=== PATIENT | male | born 1960 | race Caucasian/White ===

== ENCOUNTER 2019-07-23 05:57 | Emergency (ER) | payer SELFPAY ==
[2019-07-23] MEDS ORDERED: LIDOCAINE 2% MPF 5 ML VIAL ONE (06:43)
--- NOTE | 2019-07-23 07:02 | ER ---
Nurse's Notes [facility] Name: Dallin Lewis Age: 58 yrs Sex: Male : 1960 Arrival Date: 07/23/2019 Time: 06:00 Bed 13 Private MD: Diagnosis: Puncture wound with foreign body of left forearm Presentation: 07/22 06:15 Chief complaint: Patient states: he has a piece of a fish hook stuck in his L forearm aa1 that has been there since approx midnight. Coronavirus screen: The patient has NOT traveled to a country currently being monitored by the [facility] within the last 14 days. Proceed with normal triage procedures. Ebola Screen: No symptoms or risks identified at this time. Initial Sepsis Screen: Does the patient meet any 2 criteria? No. Patient's initial sepsis screen is negative. Does the patient have a suspected source of infection? Yes: Skin breakdown/wound. Risk Assessment: Do you want to hurt yourself or someone else? Patient reports no desire to harm self or others. Onset of symptoms. Care prior to arrival: None. Transition of care: patient was not received from another setting of care. 06:15 Method Of Arrival: Ambulatory aa1 06:15 Acuity: INDIRA 4 aa1 Historical: - Allergies: 06:18 No Known Allergies; aa1 - Home Meds: 06:18 None [Active]; aa1 - PMHx: 06:18 None; aa1 - PSHx: 06:18 None; aa1 - Immunization history:: Last tetanus immunization: up to date. - Social history:: Smoking status: Patient reports the use of cigarette tobacco products. Screenin:18 Abuse screen: Denies threats or abuse. Denies injuries from another. Nutritional aa1 screening: No deficits noted. Tuberculosis screening: No symptoms or risk factors identified. Fall Risk None identified. Assessment: 06:18 General: Appears in no apparent distress. comfortable, Behavior is calm, cooperative, aa1 appropriate for age. Pain: Denies pain. Neuro: Level of Consciousness is awake, alert, obeys commands, Oriented to person, place, time, situation, Moves all extremities. Full function Gait is steady. Respiratory: Airway is patent Respiratory effort is even, unlabored, Respiratory pattern is regular, symmetrical. GI: No signs and/or symptoms were reported involving the gastrointestinal system. : No signs and/or symptoms were reported regarding the genitourinary system. :. EENT: No signs and/or symptoms were reported regarding the EENT system. Derm: Skin is intact, is healthy with good turgor, Skin is pink, warm \T\ dry. small puncture abdiaziz noted to L forearm with redness to surrounding tissue. Musculoskeletal: Circulation, motion, and sensation intact. Capillary refill < 3 seconds. 07:10 Reassessment: Patient appears in no apparent distress at this time. Patient is alert, rr5 oriented x 3, equal unlabored respirations, skin warm/dry/pink. discharge instruction given and explained without complaints made. 07:10 Cardiovascular: Capillary refill < 3 seconds Patient's skin is warm and dry. rr5 Vital Signs: 06:15 BP 140 / 98; Pulse 86; Resp 18; Temp 98.1; Pulse Ox 100% on R/A; Weight 72.57 kg; aa1 Height 5 ft. 10 in. (177.80 cm); Pain 0/10; 07:10 BP 135 / 95; Pulse 80; Resp 17; Pulse Ox 99% on R/A; rr5 06:15 Body Mass Index 22.96 (72.57 kg, 177.80 cm) aa1 ED Course: 06:00 Patient arrived in ED. es 06:15 Jesus Alberto Gibbs PA is PHCP. jr8 06:15 Jovon Palacios MD is Attending Physician. jr8 06:17 Triage completed. aa1 06:18 Patient placed in an exam room, on a stretcher. aa1 06:18 Patient has correct armband on for positive identification. Bed in low position. Call aa1 light in reach. Pulse ox on. NIBP on. 06:45 Assist provider with foreign body removal of a fish hook from left forearm using aa1 hemostats, Set up for procedure. Performed by Jesus Alberto MCCALL Patient tolerated well. Patient did not have IV access during this emergency room visit. 07:03 Taniya Lopez, NIKA is Primary Nurse. aa1 Administered Medications: 06:45 Drug: Lidocaine (2 %) Syringe 100 mg Volume: 5 ml; Route: Infiltration; aa1 07:10 Follow up: Response: No adverse reaction rr5 Outcome: 07:02 Discharge ordered by . jr8 07:15 Discharged to home ambulatory. rr5 07:15 Condition: stable 07:15 Discharge instructions given to patient, Instructed on discharge instructions, follow up and referral plans. medication usage, Demonstrated understanding of instructions, follow-up care, medications, Prescriptions given X 1. 07:17 Patient left the ED. rr5 Signatures: Taniya Lopez, RN RN aa1 Shefali Dowling Josh, PA PA jr8 Luis Carlos Lopez, RN RN rr5
--- NOTE | 2019-07-23 07:02 | EDPHYS ---
Physician Documentation [facility] Name: Dallin Lewis Age: 58 yrs Sex: Male : 1960 Arrival Date: 07/23/2019 Time: 06:00 Bed 13 Private MD: ED Physician Jovon Palacios HPI: 07/22 06:46 This 58 yrs old Male presents to ER via Ambulatory with complaints of Fish jr8 hook in arm. 06:46 The patient or guardian complains of a puncture wound, fish hook. The complaints affect jr8 the dorsal aspect of left forearm. Onset: The symptoms/episode began/occurred acutely, today. Modifying factors: The symptoms are alleviated by nothing. the symptoms are aggravated by movement. Associated signs and symptoms: Pertinent positives:. Severity of symptoms: At their worst the symptoms were mild, in the emergency department the symptoms are unchanged. The patient has not experienced similar symptoms in the past. The patient has not recently seen a physician. Stated that he accidently got a aminah of a treble hook stuck in left forearm. Cut the hook too far down and now cannot get it out . Historical: - Allergies: 06:18 No Known Allergies; aa1 - Home Meds: 06:18 None [Active]; aa1 - PMHx: 06:18 None; aa1 - PSHx: 06:18 None; aa1 - Immunization history:: Last tetanus immunization: up to date. - Social history:: Smoking status: Patient reports the use of cigarette tobacco products. ROS: 06:46 Eyes: Negative for injury, pain, redness, and discharge, ENT: Negative for injury, jr8 pain, and discharge, Neck: Negative for injury, pain, and swelling, Cardiovascular: Negative for chest pain, palpitations, and edema, Respiratory: Negative for shortness of breath, cough, wheezing, and pleuritic chest pain, Abdomen/GI: Negative for abdominal pain, nausea, vomiting, diarrhea, and constipation, Back: Negative for injury and pain, MS/Extremity: Negative for injury and deformity, Neuro: Negative for headache, weakness, numbness, tingling, and seizure. 06:46 Skin: Positive for puncture, of the left arm. Exam: 06:46 Eyes: Pupils equal round and reactive to light, extra-ocular motions intact. Lids and jr8 lashes normal. Conjunctiva and sclera are non-icteric and not injected. Cornea within normal limits. Periorbital areas with no swelling, redness, or edema. ENT: Nares patent. No nasal discharge, no septal abnormalities noted. Tympanic membranes are normal and external auditory canals are clear. Oropharynx with no redness, swelling, or masses, exudates, or evidence of obstruction, uvula midline. Mucous membranes moist. Neck: Trachea midline, no thyromegaly or masses palpated, and no cervical lymphadenopathy. Supple, full range of motion without nuchal rigidity, or vertebral point tenderness. No Meningismus. Cardiovascular: Regular rate and rhythm with a normal S1 and S2. No gallops, murmurs, or rubs. Normal PMI, no JVD. No pulse deficits. Respiratory: Lungs have equal breath sounds bilaterally, clear to auscultation and percussion. No rales, rhonchi or wheezes noted. No increased work of breathing, no retractions or nasal flaring. Abdomen/GI: Soft, non-tender, with normal bowel sounds. No distension or tympany. No guarding or rebound. No evidence of tenderness throughout. Back: No spinal tenderness. No costovertebral tenderness. Full range of motion. MS/ Extremity: Pulses equal, no cyanosis. Neurovascular intact. Full, normal range of motion. Neuro: Awake and alert, GCS 15, oriented to person, place, time, and situation. Cranial nerves II-XII grossly intact. Motor strength 5/5 in all extremities. Sensory grossly intact. Cerebellar exam normal. Normal gait. 06:46 Skin: Patient has small approximately 2 mm puncture wound with small amount of hook showing to left dorsal forearm. No other trauma noted . Vital Signs: 06:15 BP 140 / 98; Pulse 86; Resp 18; Temp 98.1; Pulse Ox 100% on R/A; Weight 72.57 kg; aa1 Height 5 ft. 10 in. (177.80 cm); Pain 0/10; 07:10 BP 135 / 95; Pulse 80; Resp 17; Pulse Ox 99% on R/A; rr5 06:15 Body Mass Index 22.96 (72.57 kg, 177.80 cm) aa1 Procedures: 07:00 Foreign Body Removal: a fishhook, from the left dorsal aspect of left forearm, by using jr8 a hemostat, lidocaine lavage, Dressinx4s were used to dress the wound, The patient tolerated the removal well. MDM: 06:15 Patient medically screened. jr8 07:00 Data reviewed: vital signs, nurses notes, and as a result, I will discharge patient. jr8 Data interpreted: Pulse oximetry: on room air is 100 %. Interpretation: normal. Counseling: I had a detailed discussion with the patient and/or guardian regarding: the historical points, exam findings, and any diagnostic results supporting the discharge/admit diagnosis, the need for outpatient follow up, a family practitioner, to return to the emergency department if symptoms worsen or persist or if there are any questions or concerns that arise at home. 07/22 06:33 Order name: Dressing - Wound; Complete Time: 07:03 8 07/22 06:33 Order name: Gloves, Sterile; Complete Time: 07:00 jr8 07/22 06:33 Order name: Setup Suture Tray; Complete Time: 07:00 jr8 Administered Medications: 06:45 Drug: Lidocaine (2 %) Syringe 100 mg Volume: 5 ml; Route: Infiltration; aa1 07:10 Follow up: Response: No adverse reaction rr5 Disposition: 07/23 04:29 Co-signature as Attending Physician, Jovon Palacios MD I agree with the assessment and tw4 plan of care. Disposition: 07/23/19 07:02 Discharged to Home. Impression: Puncture wound with foreign body of left forearm. - Condition is Stable. - Discharge Instructions: Foreign Body. - Prescriptions for Cipro 500 mg Oral Tablet - take 1 tablet by ORAL route every 12 hours for 7 days; 14 tablet. - Medication Reconciliation Form, Thank You Letter, Antibiotic Education, Prescription Opioid Use form. - Follow up: Private Physician; When: 5 - 6 days; Reason: Wound Recheck, Recheck today's complaints, Continuance of care, Re-evaluation by your physician. - Problem is new. - Symptoms have improved. Signatures: Taniya Lopez RN RN aa1 Jesus Alberto Gibbs PA PA jr8 Jovon Palacios MD MD tw4 Luis Carlos Lopez RN RN rr5 Corrections: (The following items were deleted from the chart) 07/22 07:17 07:02 07/23/2019 07:02 Discharged to Home. Impression: Puncture wound with foreign body rr5 of left forearm. Condition is Stable. Forms are Medication Reconciliation Form, Thank You Letter, Antibiotic Education, Prescription Opioid Use. Follow up: Private Physician; When: 5 - 6 days; Reason: Wound Recheck, Recheck today's complaints, Continuance of care, Re-evaluation by your physician. Problem is new. Symptoms have improved. jr8
[2019-07-23 07:24] VITALS: TEMP 98.1
[2019-07-23 07:26] VITALS: BP 135/95; O2SAT 99
== END 2019-07-23 07:17 | disposition home or self-care (01) ==
LOC: ER 05:57
DX: S51.842A Puncture wound with foreign body of left forearm, initial encounter (principal)
CPT/HCPCS: 99284

== ENCOUNTER 2020-06-03 06:13 | Emergency (ER) | payer SELFPAY ==
[2020-06-03] MEDS ORDERED: LIDOCAINE 1% MPF 5 ML VIAL ONE (07:27)
--- NOTE | 2020-06-03 07:41 | ER ---
Nurse's Notes [facility] Name: Dallin Lewis Age: 59 yrs Sex: Male : 1960 Arrival Date: 06/03/2020 Time: 06:13 Bed 18 Private MD: Diagnosis: Superficial foreign body of left middle finger-[place] Presentation: 06/03 06:25 Chief complaint: Patient states: Fish hook in place to left middle finger; occurred at lp1 1999 last night, unable to remove. Coronavirus screen: Client denies travel out of the [place] in the last 14 days. At this time, the client does not indicate any symptoms associated with coronavirus-19. Ebola Screen: No symptoms or risks identified at this time. Risk Assessment: Do you want to hurt yourself or someone else? Patient reports no desire to harm self or others. Onset of symptoms was June 02, 2020. 06:25 Method Of Arrival: Ambulatory lp1 06:25 Acuity: INDIRA 4 lp1 06:28 Initial Sepsis Screen: Does the patient meet any 2 criteria? No. Patient's initial lp1 sepsis screen is negative. Does the patient have a suspected source of infection? No. Patient's initial sepsis screen is negative. Triage Assessment: 07:20 Injury Description: Foreign body is located palmar aspect of distal phalanx of left tw2 middle finger. Historical: - Allergies: 07:20 No Known Allergies; tw2 - PSHx: 06:23 None; ea - Immunization history:: Adult Immunizations up to date. - Social history:: Smoking status: Patient denies any tobacco usage or history of. - Family history:: not pertinent. - Hospitalizations: : No recent hospitalization is reported. Screenin:22 Abuse screen: Denies threats or abuse. Nutritional screening: No deficits noted. ea Tuberculosis screening: No symptoms or risk factors identified. Fall Risk None identified. Assessment: 06:23 General: Appears in no apparent distress. Behavior is appropriate for age. Pain: ea Complains of pain in palmar aspect of distal phalanx of left middle finger. Neuro: Level of Consciousness is awake, alert, obeys commands, Oriented to person, place, time. Respiratory: Airway is patent Respiratory effort is even, unlabored, Respiratory pattern is regular, symmetrical. Derm: Skin is pink, warm \T\ dry. Musculoskeletal: Circulation, motion, and sensation intact. 07:15 Reassessment: xray at bedside at this time. tw2 07:44 Reassessment: Patient appears in no apparent distress at this time. Patient and/or tw2 family updated on plan of care and expected duration. Pain level reassessed. Patient is alert, oriented x 3, equal unlabored respirations, skin warm/dry/pink. Patient states feeling better. Vital Signs: 06:28 BP 122 / 108; Pulse 89; Resp 18; Pulse Ox 97% on R/A; Weight 72.57 kg (R); Height 5 ft. lp1 10 in. (177.80 cm); Pain 0/10; 07:19 BP 125 / 92; Pulse 72; Resp 17; Temp 97.9(TE); Pulse Ox 99% on R/A; tw2 06:28 Body Mass Index 22.96 (72.57 kg, 177.80 cm) lp1 ED Course: 06:13 Patient arrived in ED. am2 06:22 Arm band placed on right wrist. Patient placed in an exam room, on a stretcher, on ea pulse oximetry. 06:22 Patient has correct armband on for positive identification. Bed in low position. Call ea light in reach. Side rails up X2. Pulse ox on. NIBP on. 06:28 Triage completed. lp1 06:31 Edy Johnson MD is Attending Physician. 7 07:08 Attending Physician role handed off by Edy Johnson MD rn 07:08 Jovanny Hernandez MD is Attending Physician. rn 07:14 Sadia Ayala RN is Primary Nurse. tw2 07:45 No provider procedures requiring assistance completed. Patient did not have IV access tw2 during this emergency room visit. Wound care: located on left hand and palmar aspect of distal phalanx of left middle finger was cleaned with soap and water, dressed with Neosporin, 4X4s, non adherent and secured with coban.. Administered Medications: 07:19 CANCELLED (Duplicate Order): Lidocaine (1 %) 10 ml 5 ml Infiltration once; to bedside tw2 07:30 Drug: Lidocaine (1 %) 1 vials {Note: by Dr. Hernandez.} Volume: 5 ml; Route: Infiltration; tw2 Outcome: 07:39 Discharge ordered by . rn 07:47 Discharged to home ambulatory. tw2 07:47 Condition: stable 07:47 Discharge instructions given to patient, Instructed on discharge instructions, follow up and referral plans. medication usage, wound care, Demonstrated understanding of instructions, follow-up care, medications, wound care, Prescriptions given X 1. 07:47 Patient left the ED. tw2 Signatures: Jovanny Hernandez MD MD rn Pena, Laura, RN RN lp1 Sadia Ayala RN RN tw2 Carole Ballesteros Elena, RN RN ea Holmes, Maurice, MD MD [id number] Corrections: (The following items were deleted from the chart) 06:25 06:23 Onset of symptoms anna castillo 06:25 06:24 Initial Sepsis Screen: Does the patient have a suspected source of infection? anna castillo
--- NOTE | 2020-06-03 07:41 | EDPHYS ---
Physician Documentation [facility] Name: Dallin Lewis Age: 59 yrs Sex: Male : 1960 Arrival Date: 06/03/2020 Time: 06:13 Bed 18 Private MD: ED Physician Jovanny Hernandez HPI: 06/03 07:36 This 59 yrs old Male presents to ER via Ambulatory with complaints of Finger rn Injury - fish hook. 07:36 Trauma demographics: Location of Injury: The injury occurred outdoors. rn 07:36 The patient or guardian reports foreign body. The complaints affect the palmar aspect rn of distal phalanx of left middle finger. Onset: The symptoms/episode began/occurred last night. Modifying factors: The symptoms are alleviated by nothing, the symptoms are aggravated by nothing. Severity of symptoms: At their worst the symptoms were mild, in the emergency department the symptoms are unchanged. The patient has experienced similar episodes in the past. Reports accidental fishhook in left middle finger, cut half of shaft, tetanus UTD.. Historical: - Allergies: 07:20 No Known Allergies; tw2 - PSHx: 06:23 None; ea - Immunization history:: Adult Immunizations up to date. - Social history:: Smoking status: Patient denies any tobacco usage or history of. - Family history:: not pertinent. - Hospitalizations: : No recent hospitalization is reported. ROS: 07:36 Constitutional: Negative for fever, chills, and weight loss, MS/Extremity: + fishhook rn in left middle finger Exam: 07:36 Constitutional: This is a well developed, well nourished patient who is awake, alert, rn and in no acute distress. MS/ Extremity: Pulses equal, no cyanosis. Neurovascular intact. Full, normal range of motion. Small fishhook pad of finger, left 3rd digit, partially exposed. No erythema or swelling noted. Vital Signs: 06:28 BP 122 / 108; Pulse 89; Resp 18; Pulse Ox 97% on R/A; Weight 72.57 kg (R); Height 5 ft. lp1 10 in. (177.80 cm); Pain 0/10; 07:19 BP 125 / 92; Pulse 72; Resp 17; Temp 97.9(TE); Pulse Ox 99% on R/A; tw2 06:28 Body Mass Index 22.96 (72.57 kg, 177.80 cm) lp1 Procedures: 07:36 Foreign Body Removal: a fishhook, from the left palmar aspect of distal phalanx of left rn middle finger, by using a hemostat, needle, Dressinx4s were used to dress the wound, The patient tolerated the removal well. MDM: 07:08 Patient medically screened. rn 07:36 Differential diagnosis: foreign body. Data reviewed: vital signs, nurses notes, rn radiologic studies, plain films, and as a result, I will discharge patient. Test interpretation: by ED physician or midlevel provider: plain radiologic studies, Xray left hand neg for bony injury, fishhook in finger pad. Counseling: I had a detailed discussion with the patient and/or guardian regarding: the historical points, exam findings, and any diagnostic results supporting the discharge/admit diagnosis, radiology results, the need for outpatient follow up, to return to the emergency department if symptoms worsen or persist or if there are any questions or concerns that arise at home. Response to treatment: the patient's symptoms have markedly improved after treatment, and as a result, I will discharge patient. Special discussion: I discussed with the patient/guardian in detail that at this point there is no indication for admission to the hospital. It is understood, however, that if the symptoms persist or worsen the patient needs to return immediately for re-evaluation. 06/03 06:57 Order name: Hand Left 3 View XRAY [id number] 06/03 07:44 Order name: Wound dressing; Complete Time: 07:44 tw2 06/03 07:44 Order name: Wound Care; Complete Time: 07:44 tw2 Administered Medications: 07:19 CANCELLED (Duplicate Order): Lidocaine (1 %) 10 ml 5 ml Infiltration once; to bedside tw2 07:30 Drug: Lidocaine (1 %) 1 vials {Note: by Dr. Hernandez.} Volume: 5 ml; Route: Infiltration; tw2 Disposition: 06/03/20 07:39 Discharged to Home. Impression: Superficial foreign body of left middle finger - [place]. - Condition is Stable. - Prescriptions for Augmentin 875- 125 mg Oral Tablet - take 1 tablet by ORAL route every 12 hours for 10 days; 20 tablet. - Medication Reconciliation Form, Thank You Letter, Antibiotic Education, Prescription Opioid Use form. - Follow up: Private Physician; When: As needed; Reason: Recheck today's complaints, Re-evaluation by your physician. - Problem is new. - Symptoms have improved. Signatures: Dispatcher [employer] EDJovanny Alvarado MD MD rn Wise, Tara, RN RN tw2 Jyoti Coleman RN RN anna Corrections: (The following items were deleted from the chart) 07:19 07:19 Lidocaine (1 %) 10 ml 5 ml Infiltration once; to bedside ordered. tw2 tw2 07:40 07:39 06/03/2020 07:39 Discharged to Home. Impression: Superficial foreign body of left rn middle finger. Condition is Stable. Forms are Medication Reconciliation Form, Thank You Letter, Antibiotic Education, Prescription Opioid Use. Follow up: Private Physician; When: As needed; Reason: Recheck today's complaints, Re-evaluation by your physician. Problem is new. Symptoms have improved. rn 07:47 07:40 06/03/2020 07:39 Discharged to Home. Impression: Superficial foreign body of left tw2 middle finger - [place]. Condition is Stable. Forms are Medication Reconciliation Form, Thank You Letter, Antibiotic Education, Prescription Opioid Use. Follow up: Private Physician; When: As needed; Reason: Recheck today's complaints, Re-evaluation by your physician. Problem is new. Symptoms have improved. rn
[2020-06-03 07:53] VITALS: BP 125/92; TEMP 97.9; O2SAT 99
--- NOTE | 2020-06-03 09:01 | RAD REPORT ---
EXAM DESCRIPTION: RAD - Hand Left 3 View - 06/03/2020 7:20 am CLINICAL HISTORY: Foreign Body Pain and swelling COMPARISON: No comparisons FINDINGS: Small fishhook is seen in the palmar soft tissues of the distal third finger. Additional l inear foreign body seen in the distal palmar soft tissues of fourth finger. No fracture evident.
== END 2020-06-03 07:47 | disposition home or self-care (01) ==
LOC: ER 06:13
DX: S61.243A Puncture wound with foreign body of left middle finger without damage to nail, initial encounter (principal); W22.8XXA Striking against or struck by other objects, initial encounter
CPT/HCPCS: 99284

== ENCOUNTER 2023-09-20 16:35 | Emergency (ER) | payer SELFPAY ==
--- OUTSIDE RECORDS SUMMARY | 2023-09-20 16:38 | XMS REPORT | Continuity of Care Document ---
Author Name Unknown Address [address] [facility] [address] [place] [address] [facility] thconnect Address [address] [facility] [address] [place] [address] Care Team Providers Care Oncology Technician Name Role Phone NONE, NONE Primary Care Physician Unavailab DR WILBER Dixon Attending Clinician Rosalva Basim Harvey Attending Clinician DR WILBER Wills Admitting Clinician Rosalva Neil Gibbons Admitting Clinician Unavailabl e Payers Payer Name Policy Type Policy Number Effective Date Expirati on Date Source [id number] 2022 00:00:00 Allergies, Adverse Reactions, Alerts Allergy Name Allergy Type Status Severity Reaction(s) Onset Date Inactive Date Treating Clinician Comments Source No Known Allergie s DA Active U 08-20 00:00: 00 STLSJX No Known Allergie s DA Active [facility] Vital Signs Vital Name Observation Time Observation Value Comments S ource Height 2022-10-23 13:25:00 177.8 CM Weight 2022-10-23 13:25:00 65.9 KG WEIGHT 2021-08-20 12:26:00 72.4 kg HEIGHT 2021-08-20 12:26:00 182.88 cm Encounters Start Date/Time End Date/Time Encounter Type Admission Type Attending Clinicians Care Facility Care Department Encounter ID Source 2022-10-23 13:20:00 2022-10-23 18:04:00 Outpatient E WILBER DOSS [facility] [address] [id number] [facility] 2021-08-20 11:56:00 2021-08-21 16:07:00 Inpatient ER Basim Ramesh STLSJX [facility] [id number] STLSJX Results Test Description Test Time Test Comments Results Result Co mments Source TROPONIN I OW2022-10-23 14:39:00* Test Item Value Reference Range Interpretation Comme nts TROPONIN I (test code = GTPI) <0.05 ng/mL See_Comment [Automated messa ge] The system which generated this result transmitted reference range: <=0.05. The reference range was not used to interpret this result as normal/abnormal. [employer] 8 Panel *OW* [id number] 14:20:00* Test Item Value Reference Range Interpretation Comme nts GLUCOSE (test code = GGUL) 106 mg/dL 73-118 BUN (test code = GBUN) 12 mg/dL 7-22 CREATININE (test code = GCRE) 0.8 mg/dL 0.6-1.2 CK TOTAL (test code = GCK) 42 U/L 39-380 SODIUM (test code = GNA+) 137 mmol/L 128-145 POTASSIUM (test code = GK+) 4.5 mmol/L 3.6-5.1 CHLORIDE (test code = GCL-) 106 mmol/L 98-108 TCO2 (test code = GTC02) 26 mmol/L 18-33 CBC (INCLUDES AUTOMATED DIFFERENTIAL) *2022-10-23 14:09:00* Test Item Value Reference Range Interpretation Comme nts WBC (test code = WBC) 7.1 10\S\3/uL 4.5-11.0 RBC (test code = RBC) 4.87 10\S\6/uL 4.20-5.60 HGB (test code = HBG) 14.9 g/dL 14.0-18.0 HCT (test code = HCT) 48.6 % 35.0-46.0 H MCV (test code = MCV) 99.7 fL 80.0-94.0 H MCH (test code = MCH) 30.6 pg 27.0-31.0 MCHC (test code = MCHC) 30.7 g/dL 32.0-36.0 L RDW (test code = RDW) 12.8 % 11.5-14.5 PLT (test code = PLT) 293 10\S\3/uL 130-400 MPV (test code = OMPV) 6.8 fL 6.2-10.2 NEUTROP # (test code = NE#) 4.1 10\S\3/uL 2.0-8.0 LYMPH # (test code = LY#) 2.4 10\S\3/uL 1.2-4.0 MID # (test code = GMID#) 0.6 10\S\3/uL 0.0-1.1 GRAN % (test code = GRA%) 58.3 % 35.0-73.0 LYMPH % (test code = GLY%) 33.9 % 20.0-55.0 MID % (test code = GMID%) 7.8 % 0.0-10.0 XR CHEST 1 VIEW PORTABLE *OW*2022-10-23 13:51:24 [facility] 1960 Sex: MChest Radiog raphHistory: Chest painComparison: None at this timeLocation: H45A single frontal view of the chestis submitted. The heart is within normal limits in size. Pulmonary vasculature is unremarkable. Thevisualized lung guy appear to be free of disease.The bones appear unremarkable.IMPRESSION:There is no radiographic evidence of acute cardiopulmonary disease.Electronically signed by: Mike Schulz 10/23/2022 1:51 PM CDT Chest 1 View PortableName: ROSALINE JOSEPH : 1960 [facility] [address] [facility] Phys: [place] [address] : 1960 Age: 60 SEX:M Exam Date: 08/20/21 Status: REG ER Acct: [id number] Loc: [facility] Pt Unit #: [id number] Report #: [id number] CC: Yordan Lang MD IMAGING SERVICES REPORT Order # Category/Exam [id number] RAD/XR Chest 1 View Portable ([id number]): . Results Portable frontal chest radiograph: 08/20/2021 COMPARISON: None available HISTORY: Chest pain, confusion FINDINGS: No pneumothorax or pleural fluid. No lobar consolidation or alveolar edema. Small nodule in left base noted, likely nipple shadow. Subtle nodular density in left lung apex noted partially overlying first rib and clavicle, significance uncertain on portable imaging. This could be a pulmonary nodule or a confluence of shadows.. IMPRESSION:No radiographic evidence of acute cardiopulmonary disease. Nodular densities on the leftas detailed above. Recommend nonemergent follow-up imaging of the chest with PA and lateral views with nipple markers. Code LN Reported By: Tulio Martinez MD Electronically Signed Date/Time: 08/20/21 08 Technologist: RADHA Dictated Date/Time: 08/20/21 0803 Transcribed Date/Time: Notes Date/Time Note Provider Source 2021-08-21 19:39:00 [id number] 29-08-13T19:39:00[facility] Name: ROSALINE JOSEPH [address] [facility] : 1960, Age: 60, Sex: [place] [address] Unit #: [id number], Status: DIS IN Location: [facility] I02-I Report Dict DrVeronica: Basim Ramesh MD Admission Date: 08/20/21 Report #: [id number] Discharge Date: 08/21/21 CC: Discharge Summary Provider Encounter Date: 08/21/21 Date of Admission: 08/20/21 11:56 Date of Discharge: 08/21/21 Admitting Provider: Neil Campos MD Primary Care Physician: NO PCP PROVIDER Course Hospital Course: This a 60-year-old with a PMH that includes tobacco use, and recent marijuana and methamphetamine use who was admitted on 08/20/2021 with chest pain, dizziness, shortness of breath. His chest pain appeared most consistent with costochondritis but his shortness of breath and dyspnea on exertion are concerning. He has COPD that is likely playing a role, however, there is significant concern for CHF contributions. On the day of discharge, a TTE was pending and he was recommended to stay until the echo report was finalized, and I had a long discussion with the patient about this especially in the setting of methamphetamine use. Patient unfortunately left AGAINST MEDICAL ADVICE prior to the TTE report being finalized; the TTE showed an EF of 40-45% suggesting benefit to guideline directed medical therapy for HFrEF. Prior to him leaving [facility], I had a long and detailed discussion with him regarding his need for a PCP. Although he left prior to the TTE report being finalized and is being able to officially diagnose him with HFrEF, I clearly communicated to him that I was expecting the TTE to show heart failure and we even discussed the importance of methamphetamine abstinence and obtaining a PCP and greige goods examiner. If he does follow-up with the PCP or greige goods examiner, methamphetamine cessation is paramount (I discussed this with him and provided counseling) and he warrantsguideline directed medical therapy for HFrEF with subsequent TTE. Pertinent Studies: Troponin is negative x3 UDS - meth, benzos, amphetamines CXR 08/20no acute findings. Small nodule left base noted felt to be likely nipple shadow. Subtle nodular density in left lung apex partially overlying first rib and clavicle with uncertain significance. TTE was done but report has not been uploaded, reportedly with an EF of 44%. Resuscitation Status: 08/20/21 13:49 Resuscitation Status Routine Co-Sign Provider: Resuscitation Status: FULL: Full Resuscitation Lab Results: 08/21/21 03:39 08/21/21 03:39 Abnormal Lab Results - Last 48 hrs 08/20/21 08:20: Chloride 113 H, Carbon Dioxide 20 L, Alkaline Phosphatase 132 H 08/21/21 03:39: Chloride 108 H, Carbon Dioxide 21 L 08/21/21 04:00: Ur Amphetamines Screen Detected H, U Methamphetamines Scrn Detected H, U Benzodiazepines Scrn Detected H Vitals: Vital Signs (12 hours) Temp Pulse Resp BP Pulse Ox 08/21/21 15:48 97 08/21/21 12:00 97.8 F 63 22 H 96/61 97 08/21/21 08:00 97.6 F 69 22 H 114/83 99 Weight Weight 159 lb 9.835 oz Physical Exam: The patient was seen and examined on the day of discharge. He appeared well on room air on day of discharge. Cardiopulmonary exam is unremarkable. Plan Prescriptions: Aspirin Chewable [Aspirin Chewable Tablet] 81 mg PO DAILY #30 tab Atorvastatin Calcium [Lipitor] 40 mg PO HS #30 tab Metoprolol Tartrate [Lopressor] 12.5 mg PO BID #60 tab Nitroglycerin [Nitrostat] 0.4 mg SL Q5MIN PRN #21 tab PRN Reason: Chest Pain Home Medications: Medication Instructions Recorded Confirmed Type Aspirin Chewable [Aspirin Chewable 81 mg PO DAILY #30 tab 08/21/21 Rx Tablet] Atorvastatin Calcium [Lipitor] 40 mg PO HS #30 tab 08/21/21 Rx Metoprolol Tartrate [Lopressor] 12.5 mg PO BID #60 tab 08/21/21 Rx Nitroglycerin [Nitrostat] 0.4 mg SL Q5MIN PRN #21 tab 08/21/21 Rx Allergies: No Known Allergies Allergy (Unverified 08/20/21 11:54) Referrals: PROVIDER,NO PCP [Primary Care Provider] - Disposition: LEFT AGAINST MEDICAL ADVICE Quality CORE MEASURES:: N/A <Electronically signed by Basim Ramesh > 09/13/21 1734 CNConsultationAshia CoelhoPrfgivJarovNnfbhi0588-85-21E59:39:[id number] for patient Fabiano DixonMaotoaEYODDYZXLNJU9185-69-03U35:36:13 Basim Ramesh STLSJX 2021-08-21 09:26:00 [id number] NrcpeAjFXgnSNigCggh [id number] 29-08-13T09:26:00[facility] Name: ROSALINE JOSEPH [address] [facility] : 1960, Age: 60, [place]: [place] [address] Unit #: [id number], Status: DIS IN Location: [facility] I02-I Report Dict DrVeronica: Nina Beckham PA-C Admission Date: 08/20/21 Report #: [id number] Discharge Date: 08/21/21 CC: Consultation - Consultation Encounter Date: 08/21/21 Encounter Time: 09:26 Reason for Consultation: Chest pain HPI: This patient is a 60-year-old male with a past medical history of anxiety and remote drug use, current tobacco user who presented to ED with chief complaints of left-sided chest pain that radiates to his left scapula starting yesterday morning as he was getting ready for work. 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 He denies no known etiology and reports his chest pain lasted approximately 30 minutes, resolving once in the ED post administration of aspirin. He describes the pain as sharp and stabbing, worse with movement and breathing. He denies nausea, emesis, diaphoresis, BLE edema or palpitations. He did experiencesome dizziness and shortness of breath throughout his chest pain episode. He reports no prior similar episodes. He states he has not seen a PCP in approximately 20 years and takes no medications routinely. He denies recent falls/trauma. CXR in the ER showed a lung lesion of unclearsignificance. EKG was normal. He was admitted for evaluation. He is still complaining of discomfort in his left scapula that is reproducible with palpation. He is sore with moving around. He does admit to smoking a pack a day and uses meth on a regular basis. He last used this on Wednesday. He has no known cardiac history. Allergies/Adverse Reactions: Allergy/AdvReac Type Severity Reaction Status Date / Time No Known Allergies Allergy Unverified 08/20/21 11:54 Home Medications: Medication Instructions Recorded Confirmed Type No Known 08/20/21 08/20/21 History Past medical history: None Past surgical history: None Family history: Both parents , motheraneurysm, fatherMI age 47 Social history: Reports current use of tobacco, 1 PPD for> 30 years, reports social alcohol use, reports use of marijuana/methamphetamines with last use approximately 4 days ago. ROS Constitutional: denies: fever, chills, sweats, weakness, malaise Respiratory: reports: shortness of breath. denies: cough, dry, hemoptysis, SOB with excertion, pleuritic pain, sputum, wheezing Cardiovascular: reports: chest pain, light headedness. denies: palpitations, orthopnea, paroxysmal noc. dyspnea, edema, other Gastrointestinal: denies: nausea, vomiting, abdominal pain, diarrhea, constipation, melena, hematochezia Genitourinary: denies: dysuria, frequency, incontinence, hematuria, retention Musculoskeletal: denies: neck pain, shoulder pain, arm pain, back pain, hand pain, leg pain, foot pain Skin: denies: rash, lesions, cristiano, bruising Neurological: denies: weakness, numbness, incoordination, change in speech, confusion, seizures All other systems reviewed; all pertinent +/- noted in HPI/Subj Exam Vitals: BP 114/83 HR 69 General Appearance: NAD, awake alert Eye: PERRL, anicteric sclera ENT: normocephalic atraumatic, moist mucosa Neck: supple, symmetric, no JVD Heart: RRR, no murmur, normal peripheral pulses, chest tender on the left side Respiratory: no wheezes, no rales, no ronchi, no tachypnea Gastrointestinal: soft, non-tender, non-distended, no guarding Extremities: no cyanosis, no edema Skin: normal turgor Neurological: cranial nerve grossly intact, normal sensation to touch, no weakness Musculoskeletal: normal tone, no muscle wasting, left scapular area tender to touch Psychiatric: normal affect, normal behavior, A O x 3 08/20/21 08:20 Lab results: Laboratory Last Values WBC 6.7 10x3/uL (3.5-10.5) 08/20/21 08:20 RBC 4.98 10x6/uL (4.32-5.72) 08/20/21 08:20 Hgb 15.0 g/dL (13.5-17.5) 08/20/21 08:20 Hct 45.1 % (38.8-50.0) 08/20/21 08:20 MCV 90.6 fl (81.2-95.1) 08/20/21 08:20 MCH 30.1 pg (27.0-33.0) 08/20/21 08:20 MCHC 33.3 g/dL (32.0-36.0) 08/20/21 08:20 RDW 13.2 % (11.5-14.5) 08/20/21 08:20 Plt Count 292 10x3/uL (150-450) 08/20/21 08:20 MPV 8.6 fl (7.4-10.4) 08/20/21 08:20 Immature Gran % (Auto) 0.3 % (0-5) 08/20/21 08:20 Nucleat RBC Rel Count 0.0 /100 WBC (0.0-0.0) 08/20/21 08:20 Immature Gran # (Auto) 0.02 10x3/uL (0.00-0.50) 08/20/21 08:20 Neutrophils % 57.1 % (40.0-75.0) 08/20/21 08:20 Lymphocytes % 33.1 % (18.0-47.0) 08/20/21 08:20 Monocytes % 6.8 % (0.0-10.0) 08/20/21 08:20 Eosinophils % 1.8 % (0.0-6.0) 08/20/21 08:20 Basophils % 0.9 % (0.0-2.0) 08/20/21 08:20 Neutrophils # 3.9 10x3/uL (1.5-8.4) 08/20/21 08:20 Lymphocytes # 2.2 10x3/uL (0.7-4.9) 08/20/21 08:20 Monocytes # 0.5 10x3/uL (0.0-1.1) 08/20/21 08:20 Eosinophils # 0.1 10x3/uL (0.0-0.5) 08/20/21 08:20 Basophils # 0.1 10x3/uL (0.0-0.2) 08/20/21 08:20 Sodium 143 mmol/L (136-145) 08/20/21 08:20 Potassium 4.4 mmol/L (3.5-5.1) 08/20/21 08:20 Chloride 113 mmol/L (98-107) H 08/20/21 08:20 Carbon Dioxide 20 mmol/L (22-29) L 08/20/21 08:20 Anion Gap 14 mmol/L (10-20) 08/20/21 08:20 BUN 18 mg/dL (8.4-25.7) 08/20/21 08:20 Creatinine 0.84 mg/dL (0.7-1.3) 08/20/21 08:20 Estimated GFR (MDRD) Greater than 90 08/20/21 08:20 Glucose 90 mg/dL (70-105) 08/20/21 08:20 Calcium 9.5 mg/dL (7.8-10.44) 08/20/21 08:20 Total Bilirubin 0.3 mg/dL (0.2-1.2) 08/20/21 08:20 AST 17 U/L (5-34) 08/20/21 08:20 ALT 16 U/L (8-55) 08/20/21 08:20 Alkaline Phosphatase 132 U/L (40-110) H 08/20/21 08:20 Troponin I Less than 0.010 ng/mL (< 0.028) 08/20/21 11:17 Serum Total Protein 7.4 g/dL (6.0-8.3) 08/20/21 08:20 Albumin 4.2 g/dL (3.5-5.0) 08/20/21 08:20 Globulin 3.2 g/dL (2.4-3.5) 08/20/21 08:20 Albumin/Globulin Ratio 1.3 g/dL (1.2-2.2) 08/20/21 08:20 Lipase 26 U/L (8-78) 08/20/21 08:20 Assessment: Chest pain, atypical, normal EKG, normal cardiac enzymes, likely musculoskeletal Abnormal CXR Methamphetamine use Tobacco abuse Positive family history of CAD HTN, mild History of anxiety Recommendations: Will review echocardiogram and decide further care. Follow up evaluation of CXR abnormalities. <Electronically signed by Nina Beckham PA-C> 08/21/21 1009 CNConsultationLINMarcelocaitlin Pwyhe[id number]:[id number] for patient careReginoLia tuckerHzvasbkdUPGUARNLZAMW8059-10-56M09:20:40 Nina Beckham STLSJX 2021-08-20 13:38:00 [id number] sHaVN2KaHje+HFV7scVQ5pe+zQfTx4EI3oXgE21 29-08-12T13:38:00[facility] Name: ROSALINE JOSEPH [address] [place] [address] : 1960, Age: 60, Sex: [place] [address] Unit #: [id number], Status: DIS IN Location: [facility] I02-I Report Dict : Marika Hicks NP Admission Date: 08/20/21 Report #: [id number] Discharge Date: 08/21/21 CC: Hospitalist History Physical Hospitalist HPI Chest pain, dizziness, shortness of breath History of Present Illness: 60-year-old male with no past medical history who presented to ED with chief complaint of left-sidedchest pain starting around 530 this morning as he was getting ready for work. 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 He denies no known etiology and reports his chest pain lasted approximately 30 minutes, resolving once in the ED post administration of aspirin. He describes the pain as sharp and stabbing without radiation or referral. He denies nausea, emesis, diaphoresis, BLE edema or palpitations. He did experience somedizziness and shortness of breath throughout his chest pain episode. He reports no prior similar episodes. He states he has not seen a PCP in approximately 20 years and takes no medications routinely. He denies recent falls/trauma.. ED course Vital signs: 161/105, 72, 18, 98.2 oral, 100% room air Labs: WBC 6.7, Hgb 15, HCT 45.1, PLT 292, sodium 143, potassium 4.4, chloride 113, CO2 20, anion gap14, BUN 18, creatinine 0.84, GFR 90, calcium 9.5, T bili 0.3, AST 17, ALT 16, alk phos 132, lipase 26, initial troponin negative Diagnostics: Chest x-ray negative for acute cardiopulmonary process. Subtle nodular density in leftlung apex noted partially overlying first rib and clavicle, significance uncertain. EKG per ED report with sinus rhythm, frequent PVCs, rate 71, no STT-segment changes. Medications administered: Aspirin full dose, Tylenol 1 g p.o., Ativan 1 mg IV, DuoNeb x1 Allergies/Adverse Reactions: Allergy/AdvReac Type Severity Reaction Status Date / Time No Known Allergies Allergy Unverified 08/20/21 11:54 Home Medications: Medication Instructions Recorded Confirmed Type No Known 08/20/21 08/20/21 History Past History: Past medical history: None Past surgical history: None Family history: Both parents , motheraneurysm, fatherMI age 47 Social history: Reports current use of tobacco, 1 PPD for> 30 years, reports social alcohol use, reports former use of marijuana/methamphetamines with last use approximately 1 month ago. Hospitalist HPI NIKOS Constitutional: denies: fever, chills, sweats, weakness, malaise Respiratory: reports: shortness of breath. denies: cough, dry, hemoptysis, SOB with excertion, pleuritic pain, sputum, wheezing Cardiovascular: reports: chest pain, light headedness. denies: palpitations, orthopnea, paroxysmal noc. dyspnea, edema, other Gastrointestinal: denies: nausea, vomiting, abdominal pain, diarrhea, constipation, melena, hematochezia Genitourinary: denies: dysuria, frequency, incontinence, hematuria, retention Musculoskeletal: denies: neck pain, shoulder pain, arm pain, back pain, hand pain, leg pain, foot pain Skin: denies: rash, lesions, cristiano, bruising Neurological: denies: weakness, numbness, incoordination, change in speech, confusion, seizures All other systems reviewed; all pertinent +/- noted in HPI/Subj Hospitalist Exam Vitals: Vital Signs (12 hours) Temp Pulse Resp BP Pulse Ox 08/20/21 12:21 97.9 F 65 16 130/90 100 Weight Weight 159 lb 9.835 oz General Appearance: NAD, awake alert Eye: PERRL, anicteric sclera ENT: normocephalic atraumatic, moist mucosa Neck: supple, symmetric, no JVD Heart: RRR, no murmur, normal peripheral pulses Respiratory: no wheezes, no rales, no ronchi, no tachypnea Gastrointestinal: soft, non-tender, non-distended, no guarding Extremities: no cyanosis, no edema Skin: normal turgor Neurological: cranial nerve grossly intact, normal sensation to touch, no weakness Musculoskeletal: normal tone, no muscle wasting Psychiatric: normal affect, normal behavior, A O x 3 Hospitalist Results Result Diagrams: 08/20/21 08:20 08/20/21 08:20 Lab results: Laboratory Last Values WBC 6.7 10x3/uL (3.5-10.5) 08/20/21 08:20 RBC 4.98 10x6/uL (4.32-5.72) 08/20/21 08:20 Hgb 15.0 g/dL (13.5-17.5) 08/20/21 08:20 Hct 45.1 % (38.8-50.0) 08/20/21 08:20 MCV 90.6 fl (81.2-95.1) 08/20/21 08:20 MCH 30.1 pg (27.0-33.0) 08/20/21 08:20 MCHC 33.3 g/dL (32.0-36.0) 08/20/21 08:20 RDW 13.2 % (11.5-14.5) 08/20/21 08:20 Plt Count 292 10x3/uL (150-450) 08/20/21 08:20 MPV 8.6 fl (7.4-10.4) 08/20/21 08:20 Immature Gran % (Auto) 0.3 % (0-5) 08/20/21 08:20 Nucleat RBC Rel Count 0.0 /100 WBC (0.0-0.0) 08/20/21 08:20 Immature Gran # (Auto) 0.02 10x3/uL (0.00-0.50) 08/20/21 08:20 Neutrophils % 57.1 % (40.0-75.0) 08/20/21 08:20 Lymphocytes % 33.1 % (18.0-47.0) 08/20/21 08:20 Monocytes % 6.8 % (0.0-10.0) 08/20/21 08:20 Eosinophils % 1.8 % (0.0-6.0) 08/20/21 08:20 Basophils % 0.9 % (0.0-2.0) 08/20/21 08:20 Neutrophils # 3.9 10x3/uL (1.5-8.4) 08/20/21 08:20 Lymphocytes # 2.2 10x3/uL (0.7-4.9) 08/20/21 08:20 Monocytes # 0.5 10x3/uL (0.0-1.1) 08/20/21 08:20 Eosinophils # 0.1 10x3/uL (0.0-0.5) 08/20/21 08:20 Basophils # 0.1 10x3/uL (0.0-0.2) 08/20/21 08:20 Sodium 143 mmol/L (136-145) 08/20/21 08:20 Potassium 4.4 mmol/L (3.5-5.1) 08/20/21 08:20 Chloride 113 mmol/L (98-107) H 08/20/21 08:20 Carbon Dioxide 20 mmol/L (22-29) L 08/20/21 08:20 Anion Gap 14 mmol/L (10-20) 08/20/21 08:20 BUN 18 mg/dL (8.4-25.7) 08/20/21 08:20 Creatinine 0.84 mg/dL (0.7-1.3) 08/20/21 08:20 Estimated GFR (MDRD) Greater than 90 08/20/21 08:20 Glucose 90 mg/dL (70-105) 08/20/21 08:20 Calcium 9.5 mg/dL (7.8-10.44) 08/20/21 08:20 Total Bilirubin 0.3 mg/dL (0.2-1.2) 08/20/21 08:20 AST 17 U/L (5-34) 08/20/21 08:20 ALT 16 U/L (8-55) 08/20/21 08:20 Alkaline Phosphatase 132 U/L (40-110) H 08/20/21 08:20 Troponin I Less than 0.010 ng/mL (< 0.028) 08/20/21 11:17 Serum Total Protein 7.4 g/dL (6.0-8.3) 08/20/21 08:20 Albumin 4.2 g/dL (3.5-5.0) 08/20/21 08:20 Globulin 3.2 g/dL (2.4-3.5) 08/20/21 08:20 Albumin/Globulin Ratio 1.3 g/dL (1.2-2.2) 08/20/21 08:20 Lipase 26 U/L (8-78) 08/20/21 08:20 Hospitalist H P A/P Plan: 60-year-old male patient with no past medical history who reported to ED with chief complaint of chest pain starting around 5:30 AM the morning of admission. Acute coronary syndrome Troponin negative x2, Heart score 4. Chest pain without known etiology, resolved post administration of aspirin in ED. Reproducible left anterior shoulder pain with deep palpation upon exam. Consult cardiology, recs appreciated Telemetry Monitoring Vital signs every 4 hours Echo pending Start ASA, Statin, Lovenox therapy Trend Troponin Trend labs, TSH pending Hypertension Initial BP 161/105, pulse 72 Telemetry monitoring Vital signs every 4 hours Chronic tobacco use Smoking cessation education Nicotine patch History of polysubstance abuse UDS pending Abnormal finding chest x-ray Chest x-ray negative for acute cardiopulmonary process. Subtle nodular density in left lung apex noted partially overlying first rib and clavicle, significance uncertain. Recommended outpatient follow-up imaging of chest with PA/lateral views with nipple markers. DVT prophylaxisLovenox CODE STATUSfull code Surrogate decision-maker is Tulio crowe, <Electronically signed by Marika Hicks [facility]> 08/23/21 0954 CNConsultationSimon LealMot[id number] 143CJXAVAvailable for patient careInessa LealKudvYPILUWYDCQPF6468-32-99M48:56:11 Marika Hicks STLSJX
[2023-09-20] MEDS ORDERED: ONDANSETRON 4 MG/2 ML VIAL ONE ×2 (16:54→16:56)
[2023-09-20] MEDS ORDERED: MORPHINE 4 MG/ML SYR ONE (16:55)
[2023-09-20 17:16] LABS: Absolute Eosinophils 0.1 K/uL (0-0.5); Absolute Lymphocytes (CBC) 2.2 K/uL (0.7-4.9); Absolute Monocytes 0.6 K/uL (0.1-1.3); Absolute Neutrophil 3.5 K/uL (1.8-8.0); Basophils % 0.2 % (0-1.3); Eosinophils % 2.3 % (0-4.4); Hematocrit 43.9 % (39.6-49.0); Hemoglobin 14.5 g/dL (13.6-17.9); Lymphocytes % 34.3 % (15.3-44.8); MCH 29.9 pg (27.0-35.0); MCV 90.7 fL (80-100); MPV 6.8 fL (7.6-11.3); Monocytes % 8.7 % (3.3-12.3); Neutrophils % 54.5 % (41.7-73.7); Nucleated Red Blood Cells % 0.1 % (0-0); Platelets 358 thou/uL (152-406); RBC Red Blood Cell Count 4.84 M/uL (4.33-5.43); Red Cell Distribution Width 13.9 % (12.1-15.2)
[2023-09-20 17:18] LABS: Specific Gravity 1.026 (1.005-1.030); Urine Bilirubin NEGATIVE (Negative); Urine Blood Negative (Negative); Urine Clarity Clear (Clear); Urine Color Light-Yellow (Yellow); Urine Glucose NEGATIVE (Negative); Urine Ketones NEGATIVE (Negative); Urine Microscopic Reflex YN NO UMIC; Urine Nitrite NEGATIVE (Negative); Urine Protein NEGATIVE (Negative); Urine Urobilinogen Normal (Normal); Urine pH 5.5 (5.0-7.0)
[2023-09-20 17:34] LABS: Albumin 3.3 g/dL (3.4-5.0); Albumin/Globulin Ratio 0.8 (1.1-1.8); Anion Gap 7.8 mEq/L (5.0-15.0); Bilirubin Total 0.2 mg/dL (0.2-1.0); Globulin 4.4 g/dL (2.3-3.5); Potassium 3.8 mEq/L (3.5-5.1); Protein, Total 7.7 g/dL (6.4-8.2)
--- NOTE | 2023-09-20 18:16 | RAD REPORT ---
[facility] - [facility]20/[facility]23 5:51 pm CLINICAL HISTORY: RIGHT LOWER BACK PAIN COMPARISON: No comparisons TECHNIQUE: CT of the abdomen and pelvis was performed. All CT scans are performed using dose optimization technique as appropriate and may include automated exposure control or mA/KV adjustment according to patient size. FINDINGS: Lower chest: Mild circumferential thickened distal esophagus. Liver: No acute abnormality or suspicious lesions. Biliary: No biliary ductal dilatation. Stomach: No significant focal abnormality. Duodenum: No significant focal abnormality. Pancreas: No significant abnormality. Spleen: No significant abnormality. Adrenal: No suspicious lesions. Kidney/ureter: No hydronephrosis. No renal calculi. Retroperitoneum: No retroperitoneal adenopathy. Vascular: No aneurysm. Atherosclerosis. Bowel: Diverticulosis without diverticulitis.. Normal appendix. Peritoneum: No ascites or free air. Bladder: Grossly unremarkable. Reproductive: No adnexal masses. Bones: No acute fracture. Mild degenerative changes present in the lower spine. Pars defect on the le ft at L5. Other: n/a IMPRESSION: No acute intra-abdominal or pelvic finding.
--- NOTE | 2023-09-20 18:24 | EDPHYS ---
Physician Documentation [facility] Name: Dallin Lewis Age: 63 yrs Sex: Male : 1960 Arrival Date: 09/20/2023 Time: 16:35 Bed 5 Private MD: ED Physician Jovanny Hernandez HPI: 09/19 17:43 This 63 yrs old Male presents to ER via Ambulatory with complaints of Back Pain. rn 17:43 The patient presents with pain that is acute. The symptoms are located in the low back. rn Onset: The symptoms/episode began/occurred 3 day(s) ago. The pain does not radiate. Associated signs and symptoms: Pertinent negatives: abdominal pain, chest pain, fever, hematuria, incontinence, nausea, numbness, tingling, urinary retention. Modifying factors: The patient symptoms are alleviated by nothing, the patient symptoms are aggravated by any movement. Severity of symptoms: At their worst the symptoms were moderate, in the emergency department the symptoms are unchanged. The patient has not experienced similar symptoms in the past. The patient has not recently seen a physician. Patient reports right lower back pain, nonradiating. Does not recall injury or fall. No abdominal pain or testicular pain. No history of kidney stones. Nonradiating. No fever.. Historical: - Allergies: 16:46 No Known Allergies; bp - Home Meds: 16:46 None [Active]; bp - PMHx: 16:46 None; bp - Immunization history:: Adult Immunizations unknown. - Infectious Disease History:: Denies. - Family history:: not pertinent. - Hospitalizations: : No recent hospitalization is reported. - Social history:: Smoking status: Patient reports the use of cigarette tobacco products, smokes two packs cigarettes per day. ROS: 17:43 Constitutional: Negative for fever, chills, and weight loss, Neck: Negative for injury, rn pain, and swelling, Cardiovascular: Negative for chest pain, palpitations, and edema, Respiratory: Negative for shortness of breath, cough, wheezing, and pleuritic chest pain, Abdomen/GI: Negative for abdominal pain, nausea, vomiting, diarrhea, and constipation, Back: Positive for right lower back pain : Negative for injury, bleeding, discharge, and swelling, MS/Extremity: Negative for injury and deformity, Skin: Negative for injury, rash, and discoloration, Neuro: Negative for headache, weakness, numbness, tingling, and seizure, Exam: 17:43 Constitutional: This is a well developed, well nourished patient who is awake, alert, rn and in no acute distress. Cardiovascular: Regular rate and rhythm. No pulse deficits. Respiratory: No increased work of breathing, no retractions or nasal flaring. Abdomen/GI: Soft, nontender, no masses Back: No spinal tenderness. Mild right Yissel-lumbar tenderness Skin: Warm, dry, no lesions MS/ Extremity: Pulses equal, no cyanosis. Neurovascular intact. Full, normal range of motion. Equal circumference. Neuro: Awake and alert, GCS 15, oriented to person, place, time, and situation. Cranial nerves II-XII grossly intact. Motor strength 5/5 in all extremities. Sensory grossly intact. Cerebellar exam normal. Normal gait. Vital Signs: 16:45 BP 117 / 77; Pulse 77; Resp 16; Pulse Ox 97% ; ko1 16:46 BP 137 / 79; Pulse 67; Resp 16; Temp 98; Pulse Ox 100% ; bp 18:04 BP 112 / 81; Pulse 65; Resp 18; Pulse Ox 97% ; ko1 MDM: 16:42 Patient medically screened. rn 18:21 Differential diagnosis: arthritis, Fatigue Fracture Osteoarthritis sprain, rn Ureterolithiasis. Data reviewed: vital signs, nurses notes, lab test result(s), radiologic studies, CT scan, and as a result, I will discharge patient. Counseling: I had a detailed discussion with the patient and/or guardian regarding the historical points, exam findings, and any diagnostic results supporting the discharge/admit diagnosis, lab results, radiology results, the need for outpatient follow up, to return to the emergency department if symptoms worsen or persist or if there are any questions or concerns that arise at home. Response to treatment: the patient's symptoms have markedly improved after treatment, and as a result, I will discharge patient. Special discussion: I discussed with the patient/guardian in detail that at this point there is no indication for admission to the hospital. It is understood, however, that if the symptoms persist or worsen the patient needs to return immediately for re-evaluation. Based on the history and exam findings, there is no indication for further emergent testing or inpatient evaluation. I discussed with the patient/guardian the need to see the primary care provider for further evaluation of the symptoms. ED course: Pain improved. CT stone protocol without acute findings. Labs unremarkable. Normal vital signs. Patient resting comfortably. Will give Toradol and DC home as acute low back pain without emergent need for admission. Return precautions given and understood. I have personally reviewed all of the results, including but not limited to blood tests and imaging deemed necessary to safely discharge this patient at this time. All results given to and printed out for patient. I personally went over all the results with the patient and answered all questions. Patient will follow-up with PCP and or specialist as discussed. Return precautions given and understood.. 09/19 16:45 Order name: CBC with Diff; Complete Time: 17:42 bp 09/19 16:45 Order name: CMP; Complete Time: 17:42 bp 09/19 16:45 Order name: Urinalysis w/ reflexes; Complete Time: 17:42 bp 09/19 16:45 Order name: CT Stone Protocol; Complete Time: 18:19 bp 09/19 16:45 Order name: IV Start; Complete Time: 17:10 bp 09/19 16:45 Order name: IV Saline Lock; Complete Time: 17:10 bp 09/19 16:45 Order name: Labs collected and sent; Complete Time: 17:10 bp Administered Medications: 17:10 Drug: morphine IVP or IV 4 mg IVP once over 4 mins Route: IVP; Infused Over: 4 mins; ko1 Site: right hand; 17:25 Follow up: Response: No adverse reaction ko1 17:10 Drug: Ondansetron IVP 4 mg IVP once; over 2 minutes Route: IVP; Site: right hand; ko1 17:25 Follow up: Response: No adverse reaction ko1 18:32 Drug: Ketorolac IVP 15 mg IVP once Route: IVP; Site: right hand; ko1 18:41 Follow up: Response: No adverse reaction ko1 Disposition Summary: 09/20/23 18:23 Discharge Ordered Notes: Location: Home rn Problem: new rn Symptoms: have improved rn Condition: Stable rn Diagnosis - Low back pain rn Followup: rn - With: Private Physician - When: As needed - Reason: Recheck today's complaints, Re-evaluation by your physician Discharge Instructions: - Discharge Summary Sheet rn - Acute Back Pain, Adult rn - Musculoskeletal Pain rn Forms: - Medication Reconciliation Form rn - Antibiotic news intern - Prescription Opioid Use rn - Patient Portal Instructions rn - Leadership Thank You Letter rn Prescriptions: - gabapentin 100 mg Oral capsule - take 1 capsule ORAL route 2 times per day As needed; 14 capsule; Refills: 0, rn Product Selection Permitted - Cyclobenzaprine 10 mg Oral tablet - take 1 tablet ORAL route every 8-12 hours As needed; 15 tablet; Refills: 0, rn Product Selection Permitted Signatures: Dispatcher [employer] EDMS Jovanny Hernandez MD MD rn Peltier, Brian, RN RN bp Oliver, Kathy, RN RN ko1 Corrections: (The following items were deleted from the chart) 16:46 16:46 Stone Protocol+CT.RAD.BRZ ordered. EDMS EDMS 16:46 16:46 CBC+H.LAB.BRZ ordered. EDMS EDMS 16:46 16:46 COMPREHENSIVE METABOLIC PANEL+C.LAB.BRZ ordered. EDMS EDMS 16:46 16:46 Urinalysis+U.LAB.BRZ ordered. EDMS EDMS
--- NOTE | 2023-09-20 18:24 | ER ---
Nurse's Notes [facility] Name: Dallin Lewis Age: 63 yrs Sex: Male : 1960 Arrival Date: 09/20/2023 Time: 16:35 Bed 5 Private MD: Diagnosis: Low back pain Presentation: 09/19 16:46 Chief complaint: Patient states: R LUMBAR PAIN x3 DAYS. Coronavirus screen: At this bp time, the client does not indicate any symptoms associated with coronavirus-19. Ebola Screen: No symptoms or risks identified at this time. Initial Sepsis Screen: Does the patient meet any 2 criteria? No. Patient's initial sepsis screen is negative. Does the patient have a suspected source of infection? No. Patient's initial sepsis screen is negative. Risk Assessment: Do you want to hurt yourself or someone else? Patient reports no desire to harm self or others. Onset of symptoms is unknown. 16:46 Method Of Arrival: Ambulatory bp 16:46 Acuity: INDIRA 4 bp Historical: - Allergies: 16:46 No Known Allergies; bp - Home Meds: 16:46 None [Active]; bp - PMHx: 16:46 None; bp - Immunization history:: Adult Immunizations unknown. - Infectious Disease History:: Denies. - Family history:: not pertinent. - Hospitalizations: : No recent hospitalization is reported. - Social history:: Smoking status: Patient reports the use of cigarette tobacco products, smokes two packs cigarettes per day. Screenin:05 [facility] ED Fall Risk Assessment (Adult) History of falling in the last 3 months, ko1 including since admission No falls in past 3 months (0 pts) Confusion or Disorientation No (0 pts) Intoxicated or Sedated No (0 pts) Impaired Gait Yes (1 pt) Mobility Assist Device Used No (0 pt) Altered Elimination No (0 pt) Score/Fall Risk Level 0 - 2 = Low Risk Oriented to surroundings, Maintained a safe environment, Educated pt \T\ family on fall prevention, incl call for assistance when getting out of bed, Assessed \T\ reinforced patient's understanding of fall precautions, Provided non-skid footwear, Hourly rounding (assess needs \T\ fall precautionary measures) done, Used ambulatory aids as needed (educated on \T\ assisted with), Used gait belt as appropriate. Abuse screen: Denies threats or abuse. Denies injuries from another. Nutritional screening: No deficits noted. Tuberculosis screening: No symptoms or risk factors identified. Assessment: 16:45 General: Appears in no apparent distress. uncomfortable, Behavior is calm, cooperative, ko1 appropriate for age. Pain: Complains of pain in right low back. Neuro: Level of Consciousness is awake, alert, obeys commands, Oriented to person, place, time, situation, Appropriate for age. Cardiovascular: No deficits noted. Respiratory: No deficits noted. GI: No deficits noted. : No deficits noted. EENT: No deficits noted. Derm: No deficits noted. Musculoskeletal: No deficits noted. Vital Signs: 16:45 BP 117 / 77; Pulse 77; Resp 16; Pulse Ox 97% ; ko1 16:46 BP 137 / 79; Pulse 67; Resp 16; Temp 98; Pulse Ox 100% ; bp 18:04 BP 112 / 81; Pulse 65; Resp 18; Pulse Ox 97% ; ko1 ED Course: 16:38 Patient arrived in ED. mr 16:42 Jovanny Hernandez MD is Attending Physician. rn 16:45 No provider procedures requiring assistance completed. ko1 16:45 Provided Education on: NA. ko1 16:47 Triage completed. bp 17:00 Arm band placed on right wrist. Patient placed in an exam room, on a stretcher, on ko1 pulse oximetry, Patient notified of wait time. 17:09 CBC with Diff Sent. ko1 17:09 CMP Sent. ko1 17:09 Urinalysis w/ reflexes Sent. ko1 17:10 Initial lab(s) drawn, by ED staff, sent to lab. Urine collected: clean catch specimen, ko1 clear. 17:10 Patient has correct armband on for positive identification. Bed in low position. Call ko1 light in reach. Side rails up X 1. Pulse ox on. NIBP on. Door closed. Noise minimized. Lights dimmed. Warm blanket given. Assisted with urinal. 17:53 CT Stone Protocol In Process Unspecified. EDMS 17:53 Yadira Pisano, NIKA is Primary Nurse. ko1 18:40 IV discontinued, intact, bleeding controlled, No redness/swelling at site. Pressure ko1 dressing applied. Administered Medications: 17:10 Drug: morphine IVP or IV 4 mg IVP once over 4 mins Route: IVP; Infused Over: 4 mins; ko1 Site: right hand; 17:25 Follow up: Response: No adverse reaction ko1 17:10 Drug: Ondansetron IVP 4 mg IVP once; over 2 minutes Route: IVP; Site: right hand; ko1 17:25 Follow up: Response: No adverse reaction ko1 18:32 Drug: Ketorolac IVP 15 mg IVP once Route: IVP; Site: right hand; ko1 18:41 Follow up: Response: No adverse reaction ko1 Medication: 18:05 VIS not applicable for this client. ko1 Outcome: 18:23 Discharge ordered by . rn 18:40 Discharged to home ambulatory, ko1 18:40 Condition: improved 18:40 Discharge instructions given to patient, Instructed on discharge instructions, follow up and referral plans. medication usage, Demonstrated understanding of instructions, follow-up care, medications, Prescriptions given X 2, 18:41 Patient left the ED. ko1 Signatures: Dispatcher [employer] EDVA [facility], [facility] Jovanny Powell MD MD rn Peltier, Brian, RN RN Yadira Das RN RN ko1
[2023-09-20] MEDS ORDERED: KETOROLAC 30 MG/ML INJ ONE (18:27)
[2023-09-20 19:21] VITALS: BP 112/81; TEMP 98; O2SAT 97
== END 2023-09-20 18:41 | disposition home or self-care (01) ==
LOC: ER 16:35
DX: M54.50 Low back pain, unspecified (principal)
CPT/HCPCS: 36415; 74176; 76377; 80053; 81003; 85025; 96374; 96375; 99284; J2405

== ENCOUNTER 2024-03-30 07:28 | Emergency (ER) | payer SELFPAY ==
--- OUTSIDE RECORDS SUMMARY | 2024-03-30 07:30 | XMS REPORT | Continuity of Care Document ---
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 Name Role Phone NONE, NONE Primary Care Physician Unavailab DR WILBER Dixon Attending Clinician Rosalva Basim Harvey Attending Clinician DR WILBER Wills Admitting Clinician Rosalva Neil Gibbons Admitting Clinician Unavailabl e Payers Payer Name Policy Type Policy Number Effective Date Expirati on Date Source [id number] 2022 00:00:00 Allergies, Adverse Reactions, Alerts Allergy Name Allergy Type Status Severity Reaction(s) Onset Date Inactive Date Treating Clinician Comments Source No Known Allergie s DA Active U 08-20 00:00: 00 STLSJX No Known Allergie s DA Active [facility] Vital Signs Vital Name Observation Time Observation Value Comments S ource Height 2022-10-23 13:25:00 177.8 CM Weight 2022-10-23 13:25:00 65.9 KG WEIGHT 2021-08-20 12:26:00 72.4 kg HEIGHT 2021-08-20 12:26:00 182.88 cm Encounters Start Date/Time End Date/Time Encounter Type Admission Type Attending Clinicians Care Facility Care Department Encounter ID Source 2022-10-23 13:20:00 2022-10-23 18:04:00 Outpatient E [facility] [id number] [facility] 2021-08-20 11:56:00 2021-08-21 16:07:00 Inpatient ER Basim Ramesh STLSJX [facility] [id number] STLSJX Results Test Description Test Time Test Comments Results Result Co mments Source TROPONIN I OW2022-10-23 14:39:00* Test Item Value Reference Range Interpretation Comme nts TROPONIN I (test code = GTPI) <0.05 ng/mL See_Comment [Automated messa ge] The system which generated this result transmitted reference range: <=0.05. The reference range was not used to interpret this result as normal/abnormal. [employer] 8 Panel *OW* [id number] 14:20:00* Test Item Value Reference Range Interpretation [...] XR CHEST 1 VIEW PORTABLE *OW*2022-10-23 13:51:24 [facility] : 1960 Sex: [...] PortableName: ROSALINE JOSEPH : 1960 [facility] Name: ROSALINE JOSEPH [address] Phys: [place] [address] : 1960 Age: 60 SEX:M Exam Date: 08/20/21 Status: REG ER Acct: [id number] Loc: [facility] Pt Unit #: [id number] Report #: [id number] CC: Yordan Lang MD IMAGING SERVICES REPORT Order # Category/Exam [id number] RAD/XR Chest 1 View Portable ([id number]): . Results Portable frontal chest radiograph: 08/20/2021 COMPARISON: None available HISTORY: Chest pain, confusion FINDINGS: No pneumothorax or pleural fluid. No lobar consolidation or alveolar edema. Small nodulein left base noted, likely nipple shadow. Subtle nodular density in left lung apex noted partially overlying first rib and clavicle, significance uncertain on portable imaging. This could be a pulmonary nodule or a confluence of shadows.. IMPRESSION:No radiographic evidence of acute cardiopulmonarydisease. Nodular densities on the leftas detailed above. Recommend nonemergent follow-up imaging ofthe chest with PA and lateral views with nipple markers. Code LN Reported By: Tulio Martinez MD Electronically Signed Date/Time: 08/20/21 08 Technologist: RADHA Dictated Date/Time: 08/20/21 0803 Transcribed Date/Time: Notes Date/Time Note Provider Source 2021-08-21 19:39:00 [facility] Name: ROSALINE JOSEPH [address] : 1960, Age: 60, [place]: [place] [address] Unit #: [id number], Status: DIS IN Location: [facility]- Report Dict DrVeronica: Basim Ramesh MD Admission Date: 08/20/21 Report #: [id number] Discharge Date: 08/21/21 CC: Discharge Summary Provider [...] long discussion with the patient about this amy ecially in the setting of methamphetamine use. Patient unfortunately left AGAINST MEDICAL ADVICE pr ior to the TTE report being finalized; the TTE showed an EF of 40-45% suggesting benefit to guidelin e directed medical therapy for HFrEF. Prior to him leaving [facility], I had a long and detailed discussio n with him regarding his need for a PCP. Although he left prior to the TTE report being finalized a nd is being able to officially diagnose him with HFrEF, I clearly communicated to him that I was exp ecting the TTE to show heart failure and we even discussed the importance of methamphetamine abstine nce and obtaining a PCP and attorney lawyer. If he does follow-up with the PCP or attorney lawyer, metham phetamine cessation is paramount (I discussed this with him and provided counseling) and he warrants guideline directed medical therapy for HFrEF with subsequent [...] H, U Methamphetamines Scrn Detected H, U Benzodi azepines Scrn Detected H Vitals: Vital Signs (12 [...] <Electronically signed by Basim Ramesh > 09/13/21 [id number] Basim Ramesh STLSJX 2021-08-21 09:26:00 [facility] Name: ROSALINE JOSEPH [address] [facility] : 1960, Age: 60, [place]: [place] [address] Unit #: [id number], Status: DIS IN Location: [facility] I02- Report Dict Dr.: Nina Beckham PA-C Admission Date: 08/20/21 Report #: [id number] Discharge Date: 08/21/21 CC: Consultation - Consultation [...] BLE edema or palpitations. He did experience some dizziness and shortness of breath throughout his chest pain episode. He reports no prior similar episodes. He states he has not seen a PCP in approximately 20 years and takes no medications routinely. He denies recent falls/trauma. CXR in the ER showed a lung lesion of unclear significance. EKG was normal. He was admitted for [...] Gran % (Auto) 0.3 % (0-5) 08/20/21 08: Nucleat RBC Rel Count 0.0 /100 WBC [...] signed by Nina Beckham PA-C> 08/21/21 [id number] Nina Beckham STLSJX 2021-08-20 13:38:00 [facility] Name: ROSALINE JOSEPH [address] [facility] : 1960, Age: 60, [place]: [place] [address] Unit #: [id number], Status: DIS IN Location: [facility] I02- Report Dict Dr.: Marika Hicks NP Admission Date: 08/20/21 Report #: [id number] Discharge Date: 08/21/21 CC: Hospitalist History Physical Hospitalist HPI Chest pain, dizziness, shortness of breath History of Present Illness: 60-year-old male with no past medical history who presented to ED with chief complaint of left-sided chest pain starting around 530 this morning as [...] BLE edema or palpitations. He did experience some dizziness and shortness of breath throughout his [...] potassium 4.4, chloride 113, CO2 20, anion gap 14, BUN 18, creatinine 0.84, GFR 90, calcium [...] use approximately 1 month ago. Hospitalist HPI ROS Constitutional: denies: fever, chills, sweats, weakness, malaise Respiratory: reports: shortness of breath. denies: cough, dry, hemoptysis, SOB with excertion, pleuritic pain, sputum, wheezing Cardiovascular: reports: chest pain, light headedness. denies: palpitations, orthopnea, paroxysmal noc. dyspnea, edema, other Gastrointestinal: denies: nausea, vomiting, abdominal pain, diarrhea, constipation, melena, hematoch ezia Genitourinary: denies: dysuria, frequency, incontinence, hematuria, retention [...] Gran % (Auto) 0.3 % (0-5) 08/20/21 08: Nucleat RBC Rel Count 0.0 /100 WBC [...] Tulio crowe, <Electronically signed by Marika Hicks [facility]> 08/23/21 [id number] Marika Hicks STLSJX
[2024-03-30] MEDS ORDERED: IPRATROPIUM BROM 0.5MG/2.5ML ONE (08:36)
[2024-03-30] MEDS ORDERED: ALBUTEROL 2.5 MG/3 ML NEB SOL ONE (08:36)
[2024-03-30] MEDS ORDERED: predniSONE 20 MG TAB ONE (08:36)
[2024-03-30 09:05] LABS: Absolute Basophils 0.1 K/uL (0-0.5); Absolute Eosinophils 0.1 K/uL (0-0.5); Absolute Lymphocytes (CBC) 2.2 K/uL (0.7-4.9); Absolute Monocytes 0.6 K/uL (0.1-1.3); Absolute Neutrophil 4.9 K/uL (1.8-8.0); Basophils % 0.8 % (0-1.3); Eosinophils % 1.3 % (0-4.4); Hemoglobin 16.7 g/dL (13.6-17.9); MCH 30.5 pg (27.0-35.0); MCHC 33.5 g/dL (32.0-36.0); MCV 91.1 fL (80-100); MPV 6.7 fL (7.6-11.3); Monocytes % 7.5 % (3.3-12.3); Neutrophils % 62.4 % (41.7-73.7); Nucleated Red Blood Cells % 0.1 % (0-0); Platelets 345 thou/uL (152-406); RBC Red Blood Cell Count 5.49 M/uL (4.33-5.43); Red Cell Distribution Width 13.6 % (12.1-15.2)
[2024-03-30 09:17] LABS: ALT/SGPT 20 U/L (16-61); AST/SGOT 16 U/L (15-37); Albumin 3.4 g/dL (3.4-5.0); Albumin/Globulin Ratio 0.8 (1.1-1.8); Alkaline Phosphatase 137 U/L (45-117); Anion Gap 7.1 mEq/L (5.0-15.0); BUN Blood Urea Nitrogen 20 mg/dL (7-18); Bicarbonate 28 mEq/L (21-32); Bilirubin Direct < 0.2 mg/dL (0-0.2); Bilirubin Indirect, Calculated 0.2 mg/dL (0.2-0.8); Bilirubin Total 0.4 mg/dL (0.2-1.0); Globulin 4.4 g/dL (2.3-3.5); Glomerular Filtration Rate 83 ml/min (=/>90); Glucose Level 87 mg/dL (74-106); Magnesium 2.4 mg/dL (1.6-2.4); NT PRO-BNP 29 pg/mL (<125); Potassium 4.1 mEq/L (3.5-5.1); Protein, Total 7.8 g/dL (6.4-8.2); Sodium Level 140 mEq/L (136-145); Troponin High Sensitivity 4.5 pg/mL (<58.9)
--- NOTE | 2024-03-30 09:22 | RAD REPORT ---
EXAMINATION: ONE VIEW CHEST XR CLINICAL INDICATION: Male, 63 years old.,dyspnea TECHNIQUE: Frontal chest projection is submitted. Examination is limited by patient positioning and t echnique. COMPARISON: No prior exam. FINDINGS: The lungs are well inflated and clear. No pneumothorax or sizable effusion. The heart is normal in s ize. Mediastinal contours are unremarkable. IMPRESSION: No acute intrathoracic abnormalities.
--- NOTE | 2024-03-30 09:50 | ER ---
Nurse's Notes [facility] Name: Dallin Lewis Age: 63 yrs Sex: Male : 1960 Arrival Date: 03/30/2024 Time: 07:28 Bed 23 Private MD: Diagnosis: Dyspnea, unspecified Presentation: 03/30 07:47 Chief complaint: Patient states: Shortness of breath x months that has gotten worse ss this morning. Coronavirus screen: Client denies travel out of the [place] in the last 14 days. Ebola Screen: Patient denies exposure to infectious person. Patient denies travel to an Ebola-affected area in the 21 days before illness onset. Initial Sepsis Screen: Does the patient meet any 2 criteria? No. Patient's initial sepsis screen is negative. Does the patient have a suspected source of infection? No. Patient's initial sepsis screen is negative. Risk Assessment: Do you want to hurt yourself or someone else? Patient reports no desire to harm self or others. Onset of symptoms is unknown. 07:47 Method Of Arrival: Ambulatory ss 07:47 Acuity: INDIRA 3 ss Triage Assessment: 10:06 Respiratory: the patient has mild shortness of breath. ap3 Historical: - Allergies: 07:49 No Known Allergies; ss - Home Meds: 07:49 None [Active]; ss - PMHx: 07:49 Anxiety; Depressive disorder; ss - PSHx: 07:49 None; ss - Immunization history:: Client reports receiving the 1st dose of the Covid vaccine. - Infectious Disease History:: Denies. - Social history:: Smoking status: Patient reports the use of cigarette tobacco products, smokes one-half pack cigarettes per day. - Family history:: not pertinent. Screenin:12 Abuse screen: Denies threats or abuse. Nutritional screening: No deficits noted. ap3 Tuberculosis screening: No symptoms or risk factors identified. 10:05 [facility] ED Fall Risk Assessment (Adult) History of falling in the last 3 months, ap3 including since admission No falls in past 3 months (0 pts) Confusion or Disorientation No (0 pts) Intoxicated or Sedated No (0 pts) Impaired Gait No (0 pts) Mobility Assist Device Used No (0 pt) Altered Elimination No (0 pt) Score/Fall Risk Level 0 - 2 = Low Risk Oriented to surroundings, Maintained a safe environment, Educated pt \T\ family on fall prevention, incl call for assistance when getting out of bed, Assessed \T\ reinforced patient's understanding of fall precautions, Hourly rounding (assess needs \T\ fall precautionary measures) done, Used ambulatory aids as needed (educated on \T\ assisted with), Used gait belt as appropriate. Assessment: 07:33 General: Appears comfortable, Behavior is cooperative, anxious, Denies fever. Pain: ss Denies pain. Neuro: Level of Consciousness is awake, alert, obeys commands, Oriented to person, place, time, situation, Speech is normal. Respiratory: Reports shortness of breath has been ongoing for months, worse this morning. Worsened with laying flat at times. Airway is patent Respiratory effort is even, unlabored, Respiratory pattern is regular, symmetrical. GI: Patient currently denies diarrhea, nausea, vomiting. : No signs and/or symptoms were reported regarding the genitourinary system. EENT: Oral mucosa is moist. pt is HOOPA. 08:45 Reassessment: NAD. labs sent. Call light within reach. ss 09:11 Reassessment: Patient and/or family updated on plan of care and expected duration. Pain ap3 level reassessed. Patient is alert, oriented x 3, equal unlabored respirations, skin warm/dry/pink. General: Appears in no apparent distress. comfortable, Behavior is calm, cooperative, appropriate for age. Pain: Denies pain. Pain: denies pain. Neuro: Level of Consciousness is awake, alert, obeys commands, Oriented to person, place, time, situation, Speech is normal. Cardiovascular: Patient's skin is warm and dry. Respiratory: Reports shortness of breath since the last year, but gets worse at night Airway is patent Respiratory effort is even, unlabored, Respiratory pattern is regular, symmetrical, Onset: The symptoms/episode began/occurred at an unknown time. 10:06 Cardiovascular: Rhythm is. ap3 10:06 Respiratory: Breath sounds are clear in left posterior upper lobe, right posterior ap3 upper lobe, left posterior lower lobe and right posterior middle lobe. Vital Signs: 07:47 BP 135 / 100; Pulse 63; Resp 16; Temp 98.4(O); Pulse Ox 98% ; Weight 72.57 kg; Height 5 ss ft. 10 in. ; Pain 0/10; 09:14 BP 129 / 82; Pulse 71; Resp 16; Pulse Ox 98% on R/A; Pain 0/10; ap3 07:47 Body Mass Index 22.96 (72.57 kg, 177.8 cm) ss 07:47 Pain Scale: Adult ss 09:14 Pain Scale: Adult ap3 ED Course: 07:30 Patient arrived in ED. im 07:30 Les Parra MD is Attending Physician. rt 07:49 Triage completed. ss 07:49 Arm band placed on right wrist. ss 08:03 Karina Krueger, RN is Primary Nurse. ss 08:03 EKG done, reviewed by Les Parra MD. Patient maintains SpO2 saturation greater ss than 95% on room air. 08:23 XRAY Chest (1 view) In Process Unspecified. EDMS 08:45 Inserted saline lock: 20 gauge in right wrist, using aseptic technique. Blood ss collected. Flushed with 10 mL NS. 08:50 Basic Metabolic Panel Sent. kb3 08:50 CBC with Diff Sent. kb3 08:50 LFT's Sent. kb3 08:50 Magnesium Sent. kb3 08:50 NT PRO-BNP Sent. kb3 08:50 Troponin HS Sent. kb3 09:13 Patient has correct armband on for positive identification. Placed in gown. Bed in low ap3 position. Call light in reach. Provided Education on: call light education. Client placed on continuous cardiac and pulse oximetry monitoring. NIBP monitoring applied. telemetry monitor on. Pulse ox on. NIBP on. 09:50 Kristian Menchaca MD is Referral Physician. rt 10:06 No provider procedures requiring assistance completed. IV discontinued, intact, ap3 bleeding controlled, No redness/swelling at site. Pressure dressing applied. Administered Medications: 08:50 Drug: DuoNeb Nebulize (3:1) (2.5 mg - 0.5 mg) 3 ml Nebulizer once Route: Nebulizer; kb3 09:13 Follow up: Response: No adverse reaction ap3 08:50 Drug: predniSONE PO 40 mg PO once Route: PO; kb3 10:07 Follow up: Response: No adverse reaction ap3 Medication: 10:06 VIS not applicable for this client. ap3 Outcome: 09:50 Discharge ordered by . rt 10:06 Discharged to home ambulatory, ap3 10:06 Condition: good 10:06 Discharge instructions given to patient, Instructed on discharge instructions, follow up and referral plans. medication usage, Demonstrated understanding of instructions, follow-up care, medications, Prescriptions given X 2, 10:07 Patient left the ED. ap3 Signatures: Dispatcher [employer] EDMS Karina Krueger RN RN ss Carole Coto RN RN ap3 Dulce Bonner RN RN kb3 Les Parra MD MD rt Mendoza, Itzel Corrections: (The following items were deleted from the chart) 07:51 07:49 PMHx: None; [facility]
--- NOTE | 2024-03-30 09:50 | EDPHYS ---
Physician Documentation [facility] Name: Dallin Lewis Age: 63 yrs Sex: Male : 1960 Arrival Date: 03/30/2024 Time: 07:28 Bed 23 Private MD: ED Physician Les Parra HPI: 03/30 08:03 This 63 yrs old Male presents to ER via Ambulatory with complaints of Shortness Of rt Breath. 08:03 Patient presents to the ED with dyspnea that has been present for several months. rt States that it worsened overnight. He does have a long history of tobacco abuse. States that his chest feels tight. Denies other acute complaints, symptoms are moderate in severity, no other aggravating or elevating factors.. Historical: - Allergies: 07:49 No Known Allergies; ss - Home Meds: 07:49 None [Active]; ss - PMHx: 07:49 Anxiety; Depressive disorder; ss - PSHx: 07:49 None; ss - Immunization history:: Client reports receiving the 1st dose of the Covid vaccine. - Infectious Disease History:: Denies. - Social history:: Smoking status: Patient reports the use of cigarette tobacco products, smokes one-half pack cigarettes per day. - Family history:: not pertinent. ROS: 08:06 Constitutional: Negative for fever, chills, and weight loss, Abdomen/GI: Negative for rt abdominal pain, nausea, vomiting, diarrhea, and constipation, MS/Extremity: Negative for injury and deformity, Skin: Negative for injury, rash, and discoloration, Neuro: Negative for headache, weakness, numbness, tingling, and seizure, 08:06 Cardiovascular: Positive for chest pain, Negative for edema, 08:06 Respiratory: Positive for cough, shortness of breath, Exam: 08:13 Constitutional: This is a well developed, well nourished patient who is awake, alert, rt and in no acute distress. Head/Face: Normocephalic, atraumatic. Chest/axilla: Normal chest wall appearance and motion. Nontender with no deformity. No lesions are appreciated. Cardiovascular: Regular rate and rhythm with a normal S1 and S2. No gallops, murmurs, or rubs. Normal PMI, no JVD. No pulse deficits. Abdomen/GI: Soft, non-tender, with normal bowel sounds. No distension or tympany. No guarding or rebound. No evidence of tenderness throughout. Skin: Warm, dry with normal turgor. Normal color with no rashes, no lesions, and no evidence of cellulitis. MS/ Extremity: Pulses equal, no cyanosis. Neurovascular intact. Full, normal range of motion. Neuro: Awake and alert, GCS 15, oriented to person, place, time, and situation. Cranial nerves II-XII grossly intact. Motor strength 5/5 in all extremities. Sensory grossly intact. Cerebellar exam normal. Normal gait. 08:13 ECG was reviewed by the Attending Physician. 08:13 Respiratory: Faint wheezes heard on normal breath sounds, no respiratory distress, Vital Signs: 07:47 BP 135 / 100; Pulse 63; Resp 16; Temp 98.4(O); Pulse Ox 98% ; Weight 72.57 kg; Height 5 ss ft. 10 in. ; Pain 0/10; 09:14 BP 129 / 82; Pulse 71; Resp 16; Pulse Ox 98% on R/A; Pain 0/10; ap3 07:47 Body Mass Index 22.96 (72.57 kg, 177.8 cm) ss 07:47 Pain Scale: Adult ss 09:14 Pain Scale: Adult ap3 MDM: 07:49 Medical Screening Exam initiated rt 10:13 Differential diagnosis: Bronchospasm, COPD, pneumonia, pneumothorax, ACS. Data rt reviewed: vital signs, nurses notes, lab test result(s), EKG, radiologic studies. Consideration of Admission/Observation Escalation of care including admission/observation considered. No hypoxia, stable vital signs, unremarkable workup, no indications for admission to the hospital at this time.. I considered the following discharge prescriptions or medication management in the emergency department Medications were administered in the Emergency Department. See MAR. Independent interpretation of the following test(s) in the Emergency Department X-Ray: My interpretation is No infiltrate seen on interpretation of CT scan images. Test considered but Not performed: CT: Low suspicion for PE, PE RC negative, CT angiogram not indicated. Counseling: I had a detailed discussion with the patient and/or guardian regarding the historical points, exam findings, and any diagnostic results supporting the discharge/admit diagnosis, lab results, radiology results, the need for outpatient follow up, to return to the emergency department if symptoms worsen or persist or if there are any questions or concerns that arise at home. Response to treatment: the patient's symptoms have markedly improved after treatment. 03/30 07:56 Order name: Basic Metabolic Panel; Complete Time: 09:18 rt 03/30 07:56 Order name: CBC with Diff; Complete Time: 09:18 rt 03/30 07:56 Order name: LFT's; Complete Time: 09:18 rt 03/30 07:56 Order name: Magnesium; Complete Time: 09:18 rt 03/30 07:56 Order name: NT PRO-BNP; Complete Time: 09:18 rt 03/30 07:56 Order name: Troponin HS; Complete Time: 09:18 rt 03/30 07:56 Order name: XRAY Chest (1 view); Complete Time: 09:23 rt 03/30 07:56 Order name: Cardiac monitoring; Complete Time: 08:03 rt 03/30 07:56 Order name: EKG - Nurse/Tech; Complete Time: 08:03 rt 03/30 07:56 Order name: IV Saline Lock; Complete Time: 08:50 rt 03/30 07:56 Order name: Labs collected and sent; Complete Time: 08:50 rt 03/30 07:56 Order name: O2 Per Protocol; Complete Time: 08:03 rt 03/30 07:56 Order name: O2 Sat Monitoring; Complete Time: 08:03 rt EC:13 Rate is 58 beats/min. Rhythm is regular, Sinus bradycardia with No ectopy. QRS [place] is rt Normal. IA interval is normal. QRS interval is normal. QT interval is normal. No Q waves. No ST changes noted. Interpreted by me. Administered Medications: 08:50 Drug: DuoNeb Nebulize (3:1) (2.5 mg - 0.5 mg) 3 ml Nebulizer once Route: Nebulizer; kb3 09:13 Follow up: Response: No adverse reaction ap3 08:50 Drug: predniSONE PO 40 mg PO once Route: PO; kb3 10:07 Follow up: Response: No adverse reaction ap3 Disposition Summary: 03/30/24 09:50 Discharge Ordered Notes: Location: Home rt Problem: an ongoing problem rt Symptoms: have improved rt Condition: Stable rt Diagnosis - Dyspnea, unspecified rt Followup: rt - With: Kristian Menchaca MD - When: 2 - 3 days - Reason: Discharge Instructions: - Discharge Summary Sheet rt - Shortness of Breath, Adult rt - Living With COPD rt Forms: - Medication Reconciliation Form rt - Antibiotic Education rt - Prescription Opioid Use rt - Patient Portal Instructions rt - Leadership Thank You Letter rt Prescriptions: - albuterol sulfate 90 mcg/actuation Inhalation HFA Aerosol Inhaler - inhale 4 puff INHALATION route every 4 hours as needed; 2 Each; Refills: 0, rt Product Selection Permitted - Prednisone 20 mg Oral tablet - take 2 tablets ORAL route once daily; 8 tablet; Refills: 0, Product Selection rt Permitted Signatures: Dispatcher [employer] EDMS Karina Krueger, NIKA RN ss Dulce Bonner RN RN kb3 Les Parra MD MD rt Carole Coto RN ap3 Corrections: (The following items were deleted from the chart) 07:51 07:49 PMHx: None; [facility] 07:56 07:56 BASIC METABOLIC PANEL+C.LAB.BRZ ordered. EDMS EDMS 07:56 07:56 CBC+H.LAB.BRZ ordered. EDMS EDMS 07:56 07:56 HEPATIC FUNCTION+C.LAB.BRZ ordered. EDMS EDMS 07:56 07:56 MAGNESIUM+C.LAB.BRZ ordered. EDMS EDMS 07:56 07:56 PROBNP+C.LAB.BRZ ordered. EDMS EDMS 07:56 07:56 Troponin High Sensitivity+C.LAB.BRZ ordered. EDMS EDMS 07:56 07:56 Chest Single View+RAD.RAD.BRZ ordered. EDMS EDMS
[2024-03-30 10:45] VITALS: TEMP 98.4; O2SAT 98
[2024-03-30 10:56] VITALS: BP 129/82
--- NOTE | 2024-04-03 12:10 | EKG ---
Test Date: 2024-03-30 Test Time: 07:59:38 [employer] Administrator: SB MEASUREMENT RESULTS: Intervals: Rate: 58 [place]: 152 QRSD: 84 QT: 414 QTc: 406 [place]: P: [place]: 152 QRS: 69 T: 74 INTERPRETIVE STATEMENTS: Sinus bradycardia Septal infarct, age undetermined Abnormal ECG No previous ECG available for comparison Electronically Signed On 04-03-24 12:04:06 [employer] by Neri Brenner
== END 2024-03-30 10:07 | disposition home or self-care (01) ==
LOC: ER 07:28
DX: R06.00 Dyspnea, unspecified (principal); R07.89 Other chest pain; F41.9 Anxiety disorder, unspecified; F17.210 Nicotine dependence, cigarettes, uncomplicated
CPT/HCPCS: 36415; 71045; 80048; 80076; 83735; 83880; 84484; 85025; 93005; 99285; J7512; J7613; J7644